=== PATIENT | male | born 1955 | race Caucasian/White ===

== ENCOUNTER 2025-08-09 11:29 | Inpatient (IN) | payer MEDICARE, BC ==
[2025-08-09] VITALS (9 sets, daily range): BP systolic 109–151; BP diastolic 65–95
[~2025-08-09] VITALS: Ht 172.7 cm; Wt 106.4 kg
[~2025-08-09 11:29] MED LIST: ALLO100 PO; ATOR80 PO; CLOP75 PO; EZET10 PO; LOSA50 PO; METO100ER PO
[2025-08-09] MEDS ORDERED: CeFAZolin Sodium 2,000 MG in NS 100 ML IV SCH (12:35)
[2025-08-09] MEDS ORDERED: Tranexamic Acid 100 ML IV SCH (12:35)
[2025-08-09] MEDS ORDERED: Chlorhexidine Mouth Care 15 ML UDC MT SCH (12:35)
[2025-08-09] MEDS ORDERED: ASPI81CH PO (12:51)
[2025-08-09] MEDS ORDERED: Ropivacaine 0.5% HCL/PF 5 MG/ML 30ML Vial ONE (13:31)
[2025-08-09] MEDS ORDERED: Midazolam HCl 1MG / ML 2ML Vial ONE (13:34)
[2025-08-09] MEDS ORDERED: Dexamethasone Sod Phos 10 MG/ML 1ML VIAL ONE ×2 (13:34→15:05)
[2025-08-09] MEDS ORDERED: Magnesium Hydroxide Conc 10 ML UDC PO PRN (13:50)
[2025-08-09] MEDS ORDERED: Metoclopramide HCl 5MG / ML 2ML Vial IV PRN ×2 (13:50→15:20)
[2025-08-09] MEDS ORDERED: FLU VACC TS2025(65UP)/MF59C/PF 45 MCG/0.5 ML SYRINGE IM SCH (13:55)
[2025-08-09] MEDS ORDERED: Ondansetron HCl 2 MG / ML 2ML Vial IV PRN ×2 (14:00→15:25)
[2025-08-09] MEDS ORDERED: Prochlorperazine Edisylate 10 mg Vial IV PRN ×2 (14:00→15:20)
--- NOTE | 2025-08-09 14:11 | NUR ---
Ambulatory in Day Surgery History, Chart, Medications and Allergies reviewed before start of procedure. Pre-Op teaching done. Pt verbalizes understanding. Patient States Post-Procedure ride home has been arranged. MX IV STICKS BY 3 INDIVIDUALS RN'S. IV PLACED WITH [employer] GOOD 20G.
--- NOTE | 2025-08-09 14:30 | NUR ---
1412 TIMEOUT PERFORMED AT BEDSIDE WITH TIM WARE CRNA FOR LEFT SUPRACAVICULAR BLOCK; PT TOLERATED WELL. PROCEDURE START: 1416 PROCEDURE COMPLETE: 142
[2025-08-09] MEDS ORDERED: Rocuronium Bromide 10 MG/ML 5ML Injection IV ONE ×2 (14:36→15:38)
[2025-08-09] MEDS ORDERED: Ondansetron HCl 2 MG / ML 2ML Vial ONE (15:05)
[2025-08-09] MEDS ORDERED: Ketorolac Tromethamine 30mg Vial ONE (15:17)
[2025-08-09] MEDS ORDERED: FentaNYL Citrate 50 MCG/ML 2 ML Injection IV PRN ×2 (15:20)
[2025-08-09] MEDS ORDERED: FentaNYL Citrate 50 MCG/ML 2 ML Injection ONE (15:20)
[2025-08-09] MEDS ORDERED: Albuterol 2.5 MG/3 ML VIAL INH PRN (15:25)
[2025-08-09] MEDS ORDERED: HYDROmorphone HCl/Pf 1MG SYR IV PRN (15:25)
[2025-08-09] MEDS ORDERED: Phenylephrine HCl 100 MCG/ML-NS 10MLSYR (1MG/10ML) ONE (15:37)
[2025-08-09] MEDS ORDERED: Bupivacaine 0.5% HCl 5 MG/ML 30MLVIAL ONE (16:21)
[2025-08-09] MEDS ORDERED: Sugammadex Sodium 200 MG/2ML SDV (100 MG/ML) ONE ×2 (16:34→16:35)
--- NOTE | 2025-08-09 16:37 | NUR ---
08/09/25 1637 Siri Carrillo ALL COUNTS CORRECT.
[2025-08-09] MEDS ORDERED: Ketorolac Tromethamine 15mg Vial IV SCH (18:00)
--- NOTE | 2025-08-09 19:08 | NUR ---
DISCHARGE PATIENT DISCHARGED HOME. DISCHARGE INSTRUCTIONS REVIEWED WITH PATIENT AND . PATIENT ALERT AND ORIENTED. PATIENT ABLE TO AMBULATE WITH STAND BY ASSIST. ROOM CHECK DONE PRIOR TO DISCHARGE. BELONGINGS SENT HOME WITH PATIENT.
[2025-08-10] MEDS ORDERED: CeFAZolin Sodium 2,000 MG in NS 100 ML IV SCH (01:00)
== END 2025-08-09 19:08 | disposition home or self-care (01) | DRG 483 ==
LOC: ORSCMMR 11:29 → ORD 12:30 → ORSCMMR 12:30 → ORD 13:30 → ORSCMMR 13:48 → SURS 13:48
PROVIDERS: ADMIT Orthopaedic Surgery
PROC: 3E03329 Introduction of Other Anti-infective into Peripheral Vein, Percutaneous Approach (ICD-10-PCS; 2025-08-09)
PROC: 3E02340 Introduction of Influenza Vaccine into Muscle, Percutaneous Approach (ICD-10-PCS; 2025-08-09)
PROC: 0RRK00Z Replacement of Left Shoulder Joint with Reverse Ball and Socket Synthetic Substitute, Open Approach (ICD-10-PCS; principal; 2025-08-09 14:30)
DX: M75.112 Incomplete rotator cuff tear or rupture of left shoulder, not specified as traumatic (principal); M19.012 Primary osteoarthritis, left shoulder; I10 Essential (primary) hypertension; E78.5 Hyperlipidemia, unspecified; I25.10 Atherosclerotic heart disease of native coronary artery without angina pectoris; M10.9 Gout, unspecified; F10.10 Alcohol abuse, uncomplicated; Z98.1 Arthrodesis status; Z79.891 Long term (current) use of opiate analgesic; Z79.899 Other long term (current) drug therapy; Z88.5 Allergy status to narcotic agent; Z88.0 Allergy status to penicillin; Z79.02 Long term (current) use of antithrombotics/antiplatelets; Z95.5 Presence of coronary angioplasty implant and graft; Z98.890 Other specified postprocedural states; Z23 Encounter for immunization
CPT/HCPCS: A9270; C1713; C1776; J0690; J1100; J1885; J2250; J2371; J2405; J2704; J2795; J3010; J7120